=== PATIENT | male | born 1940 | race Two or more races ===

== ENCOUNTER 2018-02-03 18:41 | Emergency (ER) | payer OTHER ==
[2018-02-03] MEDS ORDERED: NORCO 5/3251 TABLET PO (20:31)
[2018-02-03 21:26] LABS: APPEARANCE CLEAR ((CLEAR)); BILIRUBIN NEGATIVE; BLOOD NEGATIVE; COLOR YELLOW ((YELLOW)); GLUCOSE (STRIP) NEGATIVE; KETONES NEGATIVE; LEUKOCYTES NEGATIVE; NITRITE NEGATIVE; PROTEIN (STRIP) 30; SPECIFIC GRAVITY 1.011 (1.000-1.030); UROBILINOGEN 0.2 MG/DL (0.2-1.0)
[2018-02-03 21:55] LABS: AMPHETAMINE NEGATIVE (500 ng/mL); BARBITURATES NEGATIVE (200 ng/mL); BENZODIAZEPINES NEGATIVE (150 ng/mL); BUPRENORPHINE NEGATIVE (10 ng/mL); COCAINE NEGATIVE (150 ng/mL); METHADONE NEGATIVE (200 ng/mL); METHAMPHETAMINE NEGATIVE (500 ng/mL); OPIATES (MORPHINE) NEGATIVE (100 ng/mL); OXYCODONE NEGATIVE (100 ng/mL); PHENCYCLIDINE NEGATIVE (25 ng/mL); PROPOXYPHENE NEGATIVE (300 ng/mL); THC CANNABINOIDS NEGATIVE (50 ng/mL); TRICYCLIC ANTIDEPRESSANTS NEGATIVE (300 ng/mL)
== END 2018-02-03 23:32 | disposition home or self-care (01) ==
LOC: TRA 18:41
PROVIDERS: Emergency Medicine Emergency Medical Services
DX: S42.022A Displaced fracture of shaft of left clavicle, initial encounter for closed fracture (principal); S52.502A Unspecified fracture of the lower end of left radius, initial encounter for closed fracture; S52.602A Unspecified fracture of lower end of left ulna, initial encounter for closed fracture; V49.40XA Driver injured in collision with unspecified motor vehicles in traffic accident, initial encounter; Y92.410 Unspecified street and highway as the place of occurrence of the external cause
CPT/HCPCS: 71045; 72040; 72170; 73000; 73100; 81003; 99281; 99285; J3010; S0020